=== PATIENT | female | born 1975 | race Caucasian/White ===

== ENCOUNTER 2020-05-30 14:15 | Emergency (ER) | payer OTHER ==
[~2020-05-30] VITALS: Ht 175.3 cm; Wt 149.7 kg
[2020-05-30] MEDS ORDERED: FAMOTIDINE 20 M20 MG PO (15:08)
[2020-05-30] MEDS ORDERED: BENADRYL25 MG PO (15:08)
[2020-05-30] MEDS ORDERED: EPIPEN0.3 MG/0.1 IM (15:08)
[2020-05-30] MEDS ORDERED: PREDNISONE 20 M20 MG PO (15:08)
[2020-05-30 16:09] VITALS: BP 151/70
== END 2020-05-30 16:09 | disposition home or self-care (01) ==
LOC: M.ERS 14:15
DX: T63.481A Toxic effect of venom of other arthropod, accidental (unintentional), initial encounter (principal); Z98.890 Other specified postprocedural states; Z91.040 Latex allergy status; Z91.030 Bee allergy status; Y92.89 Other specified places as the place of occurrence of the external cause

== ENCOUNTER 2021-04-30 13:21 | Emergency (ER) | payer OTHER ==
[~2021-04-30] VITALS: Ht 175.3 cm; Wt 136.1 kg
[~2021-04-30 13:21] MED LIST: BENADRYL25 MG PO; EPIPEN0.3 MG/0.1 IM; FAMOTIDINE 20 M20 MG PO; PREDNISONE 20 M20 MG PO
[2021-04-30] MEDS ORDERED: OMEPRAZOLE 20 M20 M1 PO (13:49)
[2021-04-30] MEDS ORDERED: BUTALB-APAP-CA1 EACH PO (14:52)
[2021-04-30 14:58] VITALS: BP 171/100
== END 2021-04-30 15:02 | disposition home or self-care (01) ==
LOC: M.ERS 13:21
DX: G43.109 Migraine with aura, not intractable, without status migrainosus (principal); F40.8 Other phobic anxiety disorders; Z98.890 Other specified postprocedural states; Z79.899 Other long term (current) drug therapy; Z91.030 Bee allergy status; Z91.040 Latex allergy status

== ENCOUNTER → 2021-05-16 | Outpatient (CLI) | payer OTHER ==
[~2021-05-16] MED LIST changes: +BUTALB-APAP-CA1 EACH PO; +OMEPRAZOLE 20 M20 M1 PO
== END ==
LOC: M.NUC 07:14
PROVIDERS: ATTEND Nurse Practitioner Adult Health
DX: R10.11 Right upper quadrant pain (principal)